=== PATIENT | male | born 1970 | race Caucasian/White ===

== ENCOUNTER 2019-06-05 13:31 | Observation (INO) | payer MEDICAID ==
[~2019-06-05] VITALS: Ht 188 cm; Wt 105.2 kg
[2019-06-05] MEDS ORDERED: ADVAIR 500-501 EACH INH (13:42)
[2019-06-05] MEDS ORDERED: VENTOLIN HFA18 GM INH (13:42)
--- OUTSIDE RECORDS SUMMARY | 2019-06-05 15:42 | XMS ---
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 TEAM PHONE: [phone] CATRACHITO KEATING Clinic/Center: Federally Qualified 08/06/2018-[facility] ([facility]) PHONE: [phone] [facility] 08/06/2018-[facility] PRIMARY CARE PHONE: [phone] JOHN LOVE Nurse Practitioner: Family Current PHONE: [phone] [facility] \T\ MISSY - TANK PHONE: [phone] JESSICA WINKLER [facility] Current PHONE: Unknown [facility]/06/2018-[facility] PHONE: [phone] [facility] Primary Care 08/06/2018-[facility] MEDICAL GROUP [facility] PHONE: [phone] [facility] Primary Care 10/11/2018-10/11/2018 Elizabeth PHONE: Unknown [facility] ARMAND JOYNER Primary Care Current PHONE: Unknown [facility] Primary Care [facility] PHONE: Unknown [facility] Primary Care Current PHONE: Unknown [facility] Current PHONE: Unknown MILO YAO Primary Care [facility] PHONE: Unknown AKHIL CASTILLO Primary Care Current PHONE: Unknown Hasmukh Oscar Primary Care Current PHONE: Unknown JOHN LOVE Primary Care Current PHONE: [phone] [facility] Primary Care Current SPECIALTIES PHONE: Unknown [facility] Primary Care Current ADMINISTRATION PHONE: Unknown DOCTOR DIA Primary Care Current PHONE: Unknown SAAD ALBERTSEK Primary Care 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 He has a cognitive impairment (MOCHA , SLUMS , ACLS 4.4)-possibly from prior head injury. 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 Yael is often quite anxious about his chronic asthma. Helpful ED interventions to try: Care Coordination/Discharge planning: The listed PCP for Yael is Jessica Winkler OR DIRECTOR at [facility], Yael has never established care there. Encourage him to follow up with PCP. Yael says that they live with their SO in [place], however it\T\rsquo;s unknown if they\T\ rsquo;re homeless. Please ask Yael his current address. Yael was referred to [facility] FAWAD Outreach, Additional care guidelines exist for the following facilities: [facility] ( 02/06/2019 ) [facility] ( 10/08/2018 ) [facility] ( 07/28/2018 ) [facility] ( 07/16/2018 ) Care History Medical/Surgical 07/28/2018 [facility] Frequent ED Usage: Asthma (onset 15 years ago per pt after exposure to asbestos), SOB\T\nbsp; Asthma, DM type II, GERD, Folliculitis, Psoriasis, Pneumonia (hx), Wheezing\T\nbsp;\T\nbsp; DME: Nebulizer and Nebs at home, although pt sates not utilizing\T\nbsp; Social 07/28/2018 [facility] 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 VISIT COUNT ([address] [facility] [address] [facility] H. [address] [facility] H 1 [facility] 2 [facility] 1 [facility] 2 [facility] 11 [facility] 2 [facility] [address] 1 [facility] 3 [facility] H 21 [facility] 1 [facility] 1 [facility] 1 [facility] 1 [facility] 21 [facility] 21 [facility] 18 [facility] 3 [facility] [address] 3 [facility] 1 [facility] 1 EDMUNDO Villalobos TOTAL 174 NOTE: Visits indicate total known visits. ED/UCC VISIT TRACKING (12 MO.) 06/05/2019 13:32 EDMUNDO Ramos [place] TYPE: Emergency COMPLAINT: - SOB 06/04/2019 20:36 [facility] TYPE: Emergency DIAGNOSES: 09728. asthma / diff breathing 03001. Unspecified asthma, uncomplicated 06/04/2019 16:44 [facility] [place] TYPE: Emergency DIAGNOSES: - Respiratory syncytial virus causing diseases classd elswhr - Unspecified asthma with (acute) exacerbation - Shortness of Breath 06/03/2019 08:30 [facility] [place] TYPE: Emergency DIAGNOSES: - Unspecified asthma with (acute) exacerbation - Respiratory syncytial virus causing diseases classd savana - SOB 06/02/2019 19:03 Saad Vel[facility]quez [place] TYPE: Emergency DIAGNOSES: - Asthma - Severe persistent asthma with (acute) exacerbation 06/02/2019 16:49 [facility] TYPE: Emergency DIAGNOSES: 27821. left rib pain, asthma, difficulty breathing 84833. Unspecified asthma, uncomplicated 06/01/2019 10:49 [facility] TYPE: Emergency DIAGNOSES: - Unspecified asthma with (acute) exacerbation - Shortness of Breath 05/31/2019 12:23 [facility] TYPE: Emergency DIAGNOSES: - Shortness of Breath - Mild intermittent asthma, uncomplicated - Rib Pain - Contusion of left front wall of thorax, initial encounter 05/31/2019 08:43 Saad Martinez [facility] TYPE: Emergency DIAGNOSES: - Severe persistent asthma, uncomplicated - asthma/ rib pain 05/30/2019 19:08 Saad Muñoz [facility] TYPE: Emergency DIAGNOSES: - Fracture of one rib, left side, init for clos fx - asthma/rib pain 05/28/2019 08:01 [facility] TYPE: Emergency DIAGNOSES: - Shortness of Breath - Dysuria 05/27/2019 18:03 [facility] TYPE: Emergency DIAGNOSES: - Personal history of systemic steroid therapy - Urinary tract infection, site not specified - Unspecified asthma with (acute) exacerbation - Asthma - Shortness of Breath 05/05/2019 17:48 [facility] TYPE: Emergency DIAGNOSES: 90706. SOB (Asthma) 77018. Unspecified asthma with (acute) exacerbation 05/05/2019 15:09 [facility] TYPE: Emergency DIAGNOSES: - Shortness of Breath - sob - Moderate persistent asthma with (acute) exacerbation 04/27/2019 01:18 [facility] TYPE: Emergency DIAGNOSES: 47570. SOB 72686. Unspecified asthma with (acute) exacerbation 04/26/2019 15:20 [facility] KADI Pereyra TYPE: Emergency DIAGNOSES: - med eval - Shortness of Breath - Elevated white blood cell count, unspecified - Moderate persistent asthma with (acute) exacerbation 04/25/2019 21:44 [facility] KADI Pereyra TYPE: Emergency DIAGNOSES: - Shortness of Breath - med eval - Mild intermittent asthma with (acute) exacerbation 04/19/2019 21:37 [facility] TYPE: Emergency DIAGNOSES: - Asthma - Severe persistent asthma with (acute) exacerbation 04/16/2019 21:37 [facility] TYPE: Emergency DIAGNOSES: 47633. Asthma 88746. Unspecified asthma with (acute) exacerbation 04/16/2019 13:00 [facility] TYPE: Emergency DIAGNOSES: - Severe persistent asthma with (acute) exacerbation - Asthma - Shortness of Breath Plus 154 More Visits INPATIENT VISIT TRACKING (12 MO.) 06/03/2019 08:30 aSad Velásquez [place] TYPE: Medical Surgical DIAGNOSES: - Unspecified asthma with (acute) exacerbation - Respiratory syncytial virus causing diseases classd elswhr 06/01/2019 10:49 [facility] [place] TYPE: Respiratory Therapy DIAGNOSES: - Unspecified asthma with (acute) exacerbation - Gastro-esophageal reflux disease without esophagitis - Severe persistent asthma with (acute) exacerbation - Tachycardia, unspecified 04/27/2019 01:18 [facility] TYPE: Inpatient DIAGNOSES: 27057. Unspecified asthma with (acute) exacerbation 04/08/2019 22:24 [facility] KADI Pereyra TYPE: General Medicine DIAGNOSES: - Moderate persistent asthma with (acute) exacerbation 03/23/2019 17:48 Saad Muñoz [facility] TYPE: Medical Surgical DIAGNOSES: - Unspecified asthma with (acute) exacerbation 03/15/2019 15:11 [facility] [place] TYPE: Medical Surgical DIAGNOSES: 0. Unspecified asthma with (acute) exacerbation 1. Shortness of breath 1. Severe persistent asthma with (acute) exacerbation 2. Gastro-esophageal reflux disease without esophagitis 3. Dermatitis, unspecified 4. Personal history of other specified conditions 5. Patient's noncompliance w oth medical treatment and regimen 6. Oth symptoms and signs w cognitive functions and awareness 7. Anemia, unspecified 8. Elevated white blood cell count, unspecified 9. Other diseases of vocal cords 10. Personal history of other infectious and parasitic diseases 03/07/2019 18:[address] [facility] TYPE: General Medicine DIAGNOSES: - Moderate persistent asthma with status asthmaticus 02/27/2019 19:19 [facility] TYPE: Inpatient DIAGNOSES: 93489. Severe persistent asthma with (acute) exacerbation 46455. Unspecified asthma with (acute) exacerbation 02/16/2019 19:53 [facility] TYPE: Inpatient DIAGNOSES: 10615. Unspecified asthma with (acute) exacerbation . Severe persistent asthma with (acute) exacerbation 01/17/2019 11:25 [facility] TYPE: General Medicine DIAGNOSES: - Severe persistent asthma with (acute) exacerbation - Severe persistent asthma with status asthmaticus 01/01/2019 12:20 Saad MELVIN TYPE: Medical Surgical DIAGNOSES: - Dyspnea, unspecified - Other abnormalities of breathing 12/27/2018 00:34 Saad Velásquez [place] TYPE: Medical Surgical DIAGNOSES: - Unspecified asthma with (acute) exacerbation - Severe persistent asthma, uncomplicated 10/16/2018 11:33 Saad Velásquez [place] TYPE: Medical Surgical DIAGNOSES: - Personal history of other diseases of the respiratory system - Orthostatic hypotension 09/14/2018 17:40 [facility] TYPE: General Medicine DIAGNOSES: - Unspecified asthma with (acute) exacerbation - Hyperglycemia, unspecified - 1 Type 2 diabetes mellitus without complications - Shortness of Breath - Acute respiratory failure with hypoxia - Acute respiratory distress - Severe persistent asthma with status asthmaticus - Acute respiratory failure with hypercapnia 09/10/2018 19:36 [facility] DIAGNOSES: - Severe persistent asthma with (acute) exacerbation - Acute respiratory failure with hypoxia - Elevated white blood cell count, unspecified - Mild intermittent asthma with (acute) exacerbation - Anemia, unspecified - Unspecified asthma with (acute) exacerbation 09/08/2018 07:39 [facility] TYPE: General Medicine DIAGNOSES: - Moderate persistent asthma with (acute) exacerbation 09/05/2018 21:04 [facility] TYPE: Inpatient DIAGNOSES: 91199. Other diseases of vocal cords 88268. Gastro-esophageal reflux disease without esophagitis 42457. Obesity, unspecified 45438. 1 Type 2 diabetes mellitus with other specified complication 09421. Severe persistent asthma with (acute) exacerbation 08/30/2018 14:05 [facility] TYPE: Internal Medicine DIAGNOSES: - Unspecified asthma with (acute) exacerbation - Acute kidney failure, unspecified - Dyspnea, unspecified - Severe persistent asthma with (acute) exacerbation - Anemia, unspecified 08/22/2018 08:10 [facility] TYPE: General Medicine DIAGNOSES: - Tachypnea, not elsewhere classified - Unspecified asthma with (acute) exacerbation 08/16/2018 20:04 Saad Vel[facility]quez [place] TYPE: Medical Surgical DIAGNOSES: - Unspecified asthma, uncomplicated Plus 6 More Visits [email or web address]
--- NOTE | 2019-06-05 16:57 | NUR ---
PATIENT ADMITTED TO MED SURG. PATIENT VITALS ARE STABLE. PATIENT PREPARED TO TAKE A SHOWER HE IS BRYANT FROM JOB AND JUST GOT OFF OF WORK. PATIENT DENIES OTHER NEEDS AT THIS TIME.
--- NOTE | 2019-06-05 17:45 | NUR ---
PATIENT TOLERATEING ACTIVITY WELL, INDEPENDANT IN ROOM, HAD A SHOWER AND IS IN BED ORDERING DINNER. PATIENT CONTINUES ON ROOM AIR AT 94-95%, DENIES NEED FOR PRN NEB AT THIS TIME.
--- NOTE | 2019-06-05 19:27 | NUR ---
PT SITTING UP IN BED ALERT AND ORIENTED HAS NO REQUESTS AT THIS TIME. BEDSIDE REPORT FROM LUCINDA LICONA
--- NOTE | 2019-06-05 19:54 | NUR ---
ROUNDED CHARGE. PATIENT IS RESTING IN BED AND WATCHING TV. HASMUKH RN IS IN ROOM. NO NEEDS NOTED. CALL LIGHT IN REACH.
--- NOTE | 2019-06-05 22:00 | NUR ---
PT RESTING IN BED ON LEFT SIDE EYES CLOSED RR EVEN 18 BPM, NO DISTRESS NOTED. PT APPEARS TO BE SLEEPING AT THIS TIME.
--- NOTE | 2019-06-06 03:10 | NUR ---
PT RESTING SUPINE IN BED EYES CLOSED RR EVEN AT 20 BPM NO DISTRESS NOTED. PT APPEARS TO BE SLEEPING.
--- NOTE | 2019-06-06 04:13 | NUR ---
PT HAS HAD UNEVENTFUL NIGHT, CONTINUES TO HAVE WHEEZES THROUGHOUT LUNG H[place], TOLERATES ACTIVITY WELL ON ROOM AIR, INDEPENDENT IN ROOM. REQUESTED FOOD, WAS GIVEN A LUNCH BOX AND TOÑA CRACKERS. NEB TREATMENTS SCHEDULED. HE REQUESTED TO HAVE NEBS HELD IF HE IS SLEEPING.
--- NOTE | 2019-06-06 04:47 | NUR ---
PT HAS HAD AN UNEVENTFUL NIGHT, HAS SLEPT. HAS BEEN ON ROOM AIR, NO DISTRESS NOTED, NO INCREASE WORK OF BREATHING WITH ACTIVITY, INDEPENDENT IN ROOM. GOOD APPETITE.
--- NOTE | 2019-06-06 04:47 | NUR ---
PT RESTING IN BED ON LEFT SIDE, EYES CLOSED RR EVEN AT 18 BPM. PT ALERT TO NAME, V/S STABLE ON ROOM AIR.
--- NOTE | 2019-06-06 07:20 | NUR ---
PT RESTING SUPINE IN BED PT ALERT AND ORIENTED. PT DENIES NEEDS OR CONCERNS. REPORT RECEIVED FROM MONAE NOE. CALL LIGHT AND H2O IN REACH.
--- NOTE | 2019-06-06 08:22 | NUR ---
Pt resting in bed watching tv. Pt assessment completed. pt reports 7/10 aching pain to head. pt states he gets headaches with albuterol treatments. Call light and h2o in reach. PRN po tylenol administered per pt reqeust. pt also requests prevacid to be ordered today for indegestion. Pt denies nausea, sob or other needs or concerns.
[2019-06-06] MEDS ORDERED: PREDNISONE20 MG PO (09:55)
[2019-06-06] MEDS ORDERED: PREVACID 24HR15 MG PO (09:56)
[2019-06-06] MEDS ORDERED: IPRAT-ALBUT 0.5-3 ML INH (09:57)
--- NOTE | 2019-06-06 09:57 | NUR ---
MED REC COMPLETE
--- NOTE | 2019-06-06 10:26 | NUR ---
PT RESTING SUPINE IN BED ALERT AND ORIENTED. CALL LIGHT AND H2O IN REACH. NO NEEDS OR CONCERNS VOICED. PT APPEARS TO BE IN NO ACUTE DISTRESS.
--- NOTE | 2019-06-06 11:56 | NUR ---
PT RESTING IN SEMIFOWLERS POSITION IN BED. PT ALERT AND ORIENTED. CALL LIGHT AND H2O IN REACH. PT DENIES NEEDS OR CONCERNS.
--- NOTE | 2019-06-06 14:05 | NUR ---
PT ALERT AND ORIENTED PACING IN ROOM. PT ASSESSMENT COMPLETED AND SCHEDULED MED ADMINISTERED. PT EDUCATION PROVIDED REGARDING EVENTUAL DISCHARGE. PT VOICED UNDERSTANDING. CALL LIGHT AND H2O IN REACH. PT DENIES FURTHER NEEDS OR CONCERNS.
--- NOTE | 2019-06-06 14:21 | NUR ---
IN TO SEE PATIENT. PT STATES "I HAVE ALREADY BEEN DISCHARGED THEY WENT OVER MY PATIENT EDUCATION WITH ME, TOOK OUT MY IV GO MY VITAL SIGNS AND PHARMACY SAID I WASN'T PRESCRIBED ANY NEW MEDICATION SO I THINK I'M GOOD TO GO NOW THANK YOU." DISCUSSED THIS WITH CHARGE NURSE WHO INFORMED THIS RN THAT PT HAD NOT SIGNED DISCHARGE PAPERS. UPON RETURNING TO PROVIDE DISCHARGE PAPERS PT NO LONGER IN ROOM. ATTEMPT TO CALL PT'S CONTACT NUMBER BUT PHONE APPEARS TO BE DISCONNECTED. MD AWARE IS CODING MANAGER.
--- NOTE | 2019-06-06 20:49 | EKG ---
[facility] [address] [place], [place] [address] Signed Sinus tachycardia Otherwise normal ECG No previous ECGs available Confirmed by RICHARD CLARK DO ([id number]) on 06/06/2019 8:49:11 PM Electronically Signed By: RICHARD CLARK DO 06/06/19 2049 PATIENT NAME: YAEL DALEY Electrocardiogram DATE OF : 72 PHYSICIAN: RICHARD CLARK DO REPORT #: [id number] REPORT IS CONFIDENTIAL AND NOT TO BE RELEASED WITHOUT AUTHORIZATION
== END 2019-06-06 14:00 | disposition home or self-care (01) ==
LOC: ED 13:31 → MS 13:33
PROVIDERS: ADMIT Student in an Organized Health Care Education/Training Program
DX: J45.50 Severe persistent asthma, uncomplicated (principal); G31.84 Mild cognitive impairment of uncertain or unknown etiology; Z88.8 Allergy status to other drugs, medicaments and biological substances; Z79.899 Other long term (current) drug therapy; Z79.51 Long term (current) use of inhaled steroids
CPT/HCPCS: 71045; 80053; 83605; 83735; 84484; 85025; 87502; 93005; 93010; 94640; 94760; 99285-25; G0378; J7512